=== PATIENT | female | born 1990 | race Caucasian/White ===

== ENCOUNTER 2022-06-26 08:40 | Emergency (ER) | payer BC ==
[~2022-06-26] VITALS: Ht 157.5 cm; Wt 59.9 kg
[2022-06-26 08:43] VITALS: BP 114/78
--- NOTE | 2022-06-26 09:02 | NUR ---
c/o headache since earlier today, believes it relates to a med she started to take three days ago (Wellbutrin), no dizziness denies any nausea or vomiting
[2022-06-26] MEDS ORDERED: ONDA8TAB87 PO (09:27)
[2022-06-26] MEDS ORDERED: ATA25 PO (09:27)
--- NOTE | 2022-06-26 09:31 | NUR ---
Patient discharged with v/s stable. Written and verbal after care instructions given and explained. Patient verbalized understanding. Ambulatory with steady gait. All questions addressed prior to discharge. Advised to follow up with PMD in 3-4 days
[2022-06-26 09:32] VITALS: BP 112/76
== END 2022-06-26 09:31 | disposition home or self-care (01) ==
LOC: MED 08:40
DX: F41.0 Panic disorder [episodic paroxysmal anxiety] (principal)
CPT/HCPCS: 99281